=== PATIENT | female | born 1990 | race Caucasian/White ===

== ENCOUNTER 2025-04-17 10:10 | Emergency (ER) | payer MEDICAID, OTHER ==
[~2025-04-17] VITALS: Ht 175.3 cm; Wt 73.3 kg
[~2025-04-17 10:10] MED LIST: ACET650T51; AMOX500C2 PO; NORGTAB33 PO
--- NOTE | 2025-04-17 10:59 | ED.PDOC ---
GI ASSESSMENT HPI Comments 35 y.o female presents to the ED for a chief complaint of generalized weakness associated with nausea, vomiting, diarrhea x 1 week. Patient reports ongoing symptoms, was seen at an urgent care 3 days ago and was advised to go to the ED if she saw any blood in her vomit or diarrhea. Patient states today she woke up and noticed blood specks in her stool, prompting her to come into the ED. Patient also states elevated heart rate recorded by her aura ring at rest with shakiness and weakness. She states that she does feel anxiety as she was recently diagnosed with breast cancer and now is concerned that this could be related. She denies any dysuria, fever, chills, sick contact exposure, hematemesis. Patient was recently diagnosed with breast cancer 2 months ago, had a recent PET scan. She admits to consuming edible marijuana occasionally. Chief Complaint: Nausea/Vomiting Time Seen by MD: 10:37 Primary Care Provider: WANDER Ramsey Notes: Nurses Notes, Medications, Allergies Allergies: Coded Allergies: Acetaminophen (Verified Allergy, 12/25/12) Hydrocodone (Verified Allergy, 12/25/12) Home Meds Active Scripts Ondansetron Odt 4MG Tab (ZOFRAN PO) 4 Mg Tb, 4 MG PO Q8HPRN PRN for 5 Days, #10 TAB ODT TAB-DISSOLVE IN MOUTH, THEN SWALLOW Prov:MADONNA DEE MD 04/17/25 Reported Medications Amoxicillin Trihydrate (Amoxicillin) 500 Mg Cap, 500 MG PO PRN 12/25/12 Acetaminophen W/ Codeine (Cocet) 1 Tab Tab 12/25/12 Norgestimate-Ethinyl Estradiol (Trinessa) Tab, 1 TAB PO DAILY 12/15/12 Information Source: Patient, Relative Mode of Arrival: Ambulatory Timing: Weeks (1) Duration: Since onset Quality: None Vomitus: Hard Stool: Blood Streaked, Loose Severity: Moderate Recent: None Recent Hx of: None Pain Location: None Modifying Factors: Nothing Associated sign and symptoms: Nausea, Vomiting, Diarrhea, Blood in Stool Past Medical History PAST MEDICAL HISTORY: Cancer Surgical History: Denies all surgeries AREA PLANT MANAGER History: Denies all AREA PLANT MANAGER Hx Family History Family History: Reviewed,noncontributory to illness Social History Smoker: Non-Smoker Alcohol: Denies ETOH Use Drugs: Marijuana Lives In: Home Constitutional: reports: weakness; denies: chills, diaphoresis, fatigue, fever, malaise, sweats, others EENTM: denies: blurred vision, double vision, ear bleeding, ear discharge, ear drainage, ear pain, ear ringing, eye pain, eye redness, hearing loss, mouth pain, mouth swelling, nasal discharge, nose bleeding, nose congestion, nose pain, photophobia, tearing, throat pain, throat swelling, voice changes, others Respiratory: denies: cough, hemoptysis, orthopnea, SOB at rest, shortness of breath, SOB with excertion, stridor, wheezing, others Cardiovascular: denies: chest pain, dizzy spells, diaphoresis, Dyspnea on exertion, edema, irregular heart beat, left arm pain, lightheadedness, palpitations, PND, syncope, others Gastrointestinal: reports: diarrhea, nausea, rectal bleeding, vomiting; denies: abdomen distended, abdominal pain, blood streaked bowels, constipated, dysphagia, difficulty swallowing, hematemesis, melena, poor appetite, poor fluid intake, rectal pain, others Genitourinary: denies: abnormal vagina bleeding, burning, dyspareunia, dysuria, flank pain, frequency, hematuria, incontinence, pain, , vagina discharge, urgency, others Neurological: denies: dizziness, fainting, headache, left sided numbness, left sided weakness, numbness, paresthesia, pre-existing deficit, right sided numbness, right sided weakness, seizure, speech problems, tingling, tremors, weakness, others Musculoskeletal: denies: back pain, gout, joint pain, joint swelling, muscle pain, muscle stiffness, neck pain, others Integumetry: denies: bruises, change in color, change in hair/nails, dryness, laceration, lesions, lumps, rash, wounds, others Allergic/Immunocompromised: denies: Difficulty Healing, Frequent Infections, Hives, Itching, others Hematologic/Lymphatic: denies: anemia, blood clots, easy bleeding, easy bruising, swollen glands, others Endocrine: denies: excessive hunger, excessive sweating, excessive thirst, excessive urination, flushing, intolerance to cold, intolerance to heat, unexplained weight gain, unexplained weight loss, others Psychiatric: denies: anxiety, bipolar disorder, depression, hopeless, panic disorder, schizophrenia, sleepless, suicidal, others All Other Systems: Reviewed and Negative Physical Exam General Appearance: No Apparent Distress, Normal HEENT: Normal ENT Inspection, Pharynx Normal, TMs Normal Neck: Full Range of Motion, Non-Tender, Normal, Normal Inspection Respiratory: Chest Non-Tender, Lungs Clear, No Accessory Muscle Use, No Respiratory Distress, Normal Breath Sounds Cardiovascular: No Edema, No JVD, No Murmur, No Gallop, Normal Peripheral Pulses, Regular Rate/Rhythm Breast Exam: Deferred Gastrointestinal: No Organomegaly, Non Tender, No Pulsatile Mass, Normal Bowel Sounds, Soft Genitalia: Deferred Pelvic: Deferred Rectal: Deferred Extremities: No calf tenderness, Normal capillary refill, Normal inspection, Normal range of motion, Non-tender, No pedal edema Musculoskeletal : Apperance: Normal Neurologic: Alert, legal office administrator II-XII nml as Tested, No Motor Deficits, Normal Affect, Normal Mood, No Sensory Deficits Cerebellar Function: Normal Reflexes: Normal Skin: Dry, Normal Color, Warm Lymphatic: No Adenopathy Was a procedure done? Was a procedure done?: No GI differential Dx Differential Diagnosis: Gastritis/PUD, Gastroenteritis, UTI, Dehydration, Electrolyte Imbalance, Food Poisoning, Parasitic, Hypovolemia, Malnutrition, Esophageal Varicies, Stress Ulcer X-Ray, Labs, Meds, VS Vital Signs Date Time Temp Pulse Resp B/P (MAP) Pulse Ox O2 Delivery O2 Flow Rate FiO2 04/17/25 11:25 97.7 117 18 126/78 (94) 97 97.7 04/17/25 11:25 117 18 97 Room Air* 0 21 04/17/25 10:17 98.1 109 17 115/73 (87) 99 98.1 Lab Test 04/17/25 11:31 04/17/25 11:04 Range/Units Urine Color Colorless Yellow Urine Clarity Clear Clear Urine pH 5.5 5.0-9.0 Urine Specific [place] 1.003 1.001-1.035 Urine Protein Negative Negative Urine Ketones 1+ H Negative Urine Blood Negative Negative /uL Urine Nitrite Negative Negative Urine Bilirubin Negative Negative Urine Urobilinogen Normal Negative mg/dL Urine Leukocyte Esterase Negative Negative /uL Urine RBC <1 0 - 4 /hpf Urine Microscopic WBC < 1 0-5 /HPF Urine Squamous Epithelial Cells Few <5 /hpf Urine Bacteria Few H None Seen /hpf Urine Glucose Normal Normal mg/dL Urine Test Negative Negative White Blood Count 4.7 4.4-10.8 10^3/uL Red Blood Count 4.76 4.0-5.20 10^6/uL Hemoglobin 13.8 12.2-16.2 g/dL Hematocrit 41.5 36.0-46.0 % Mean Corpuscular Volume 87.2 80.0-100.0 fL Mean Corpuscular Hemoglobin 29.1 28.0-32.0 pg Mean Corpuscular Hemoglobin Concent 33.4 32.0-36.0 g/dL Red Cell Distribution Width 14.1 11.8-14.3 % Platelet Count 290 140-450 10^3/uL Mean Platelet Volume 8.6 6.9-10.8 fL Neutrophils (%) (Auto) 64.1 37.0-80.0 % Lymphocytes (%) (Auto) 23.5 10.0-50.0 % Monocytes (%) (Auto) 8.9 0.0-12.0 % Eosinophils (%) (Auto) 2.5 0.0-7.0 % Basophils (%) (Auto) 1.0 0.0-2.0 % Neutrophils # (Auto) 3.0 1.6-8.6 10 ^3/uL Lymphocytes # (Auto) 1.1 0.4-5.4 10 ^3/uL Monocytes # (Auto) 0.4 0-1.3 10 ^3/uL Eosinophils # (Auto) 0.1 0-0.8 10 ^3/uL Basophils # (Auto) 0 0-0.2 10 ^3/uL Nucleated Red Blood Cells 0.1 % Sodium Level 137 136-145 mmol/L Potassium Level 4.0 3.5-5.1 mmol/L Chloride Level 104 98-107 mmol/L Carbon Dioxide Level 22 20-31 mmol/L Anion Gap 11 5-15 Blood Urea Nitrogen 7 L 9-23 mg/dL Creatinine 0.72 0.550-1.02 mg/dL Glomerular Filtration Rate Calc 113 >90 mL/min BUN/Creatinine Ratio 9.7 L 10.0-20.0 Serum Glucose 88 74-106 mg/dL Calcium Level 9.0 8.7-10.4 mg/dL Total Bilirubin 0.4 0.2-1.0 mg/dL Direct Bilirubin 0.2 <0.3 mg/dL Aspartate Amino Transferase (AST) 24 <34 U/L Alanine Aminotransferase (ALT) 18 7-40 U/L Alkaline Phosphatase 47 46-116 U/L Total Protein 7.6 5.7-8.2 g/dL Albumin 4.4 3.2-4.8 g/dL Lipase 32 12-53 U/L Current Medications Medications (Trade) Dose Ordered Sig/Elyssa Route Start Time Stop Time Status Last Admin Sodium Chloride 1,000 ml @ 1,000 mls/hr Q1H ONCE IV 04/17/25 11:00 04/17/25 11:59 DC 04/17/25 11:28 Ondansetron HCl (Zofran) 4 mg O ONCE IV 04/17/25 11:00 04/17/25 11:01 DC 04/17/25 11:29 X-Ray, Labs, Meds, VS Comment Patient presents with acute onset of nausea/vomiting/diarrhea without clear etiology from evaluation today and may represent acute viral infection amongst an otherwise broad differential. Today with no signs of dehydration or MARKOS. Symptomatic control achieved in the emergency department with NS/Zofran and patient able to tolerate PO. I suggested performing a rectal exam with the patient to evaluate for her source of possible blood specks in her stool however she refused this and stated she would prefer to follow up with the primary care provider. States it was just one bowel movement and she has no rectal nor abdominal pain. Discussed symptomatic management and supportive care. Patient to follow-up with primary care provider within the next week for reevaluation. Reviewed return precautions including, but not limited to worsening of symptoms, fever > 100.4, PO intolerance, worsening abdominal pain. Patient is in agreement with the plan and all questions answered. Considered cannabis hyperemesis syndrome, gastroparesis, DKA, small bowel obstruction, pancreatitis, atypical ACS/[place], appendicitis, biliary etiology, or diverticulitis, but consider these to be less likely based on history/physical/evaluation as above. Time of 1ST Reevaluation: 10:59 Reevaluation 1ST: Unchanged Time of 2ND Reevaluation: 13:28 Reevaluation 2ND: Resolved (Tolerating p.o., in no distress, feels significantly improved after receiving the results of her blood work and the fluids/Zofran) Patient Education/Counseling: Diagnosis, Treatment, Prognosis, Need For Follow Up Family Education/Counseling: Diagnosis, Treatment, Prognosis, Need For Follow Up SEPSIS Sepsis Screen Date sepsis recognized/suspect: Apr 17, 2025 Time Sepsis recognized/suspect: 1017 Recent Procedure: No On Antibiotic Therapy: Yes (FLAGYL ) Respiratory Rate >20: No Heart Rate >90: No Temp<36 C (96.8 F) or >38.3 C: No SBP <90 or MAP <65 mmHG: No New Acute Mental Status Change: No Is the patient on CPAP, BIPAP,: No Vital Signs Date Time Temp Pulse Resp B/P (MAP) Pulse Ox O2 Delivery O2 Flow Rate FiO2 04/17/25 11:25 97.7 117 18 126/78 (94) 97 97.7 04/17/25 11:25 117 18 97 Room Air* 0 21 04/17/25 10:17 98.1 109 17 115/73 (87) 99 98.1 Laboratory Tests Test 04/17/25 11:04 White Blood Count 4.7 10^3/uL (4.4-10.8) Medications Medications Dose Ordered Sig/Elyssa Route Start Time Stop Time Status Last Admin Dose Admin Ondansetron HCl 4 mg O ONCE IV 04/17/25 11:00 04/17/25 11:01 DC 04/17/25 11:29 Sodium Chloride 1,000 ml @ 1,000 mls/hr Q1H ONCE IV 04/17/25 11:00 04/17/25 11:59 DC 04/17/25 11:28 Departure 1 Departure Time of Disposition: 13:38 Impression: Primary Impression: Gastroenteritis Additional Impression: History of breast cancer Disposition: HOME / SELF CARE / HOMELESS Condition: Stable e-Prescriptions Ondansetron Odt 4MG Tab (ZOFRAN PO) 4 Mg Tb 4 MG PO Q8HPRN PRN for 5 Days, #10 TAB ODT TAB-DISSOLVE IN MOUTH, THEN SWALLOW Prov: MADONNA DEE MD 04/17/25 Discharged With: Relative (Mother) Critical Care Note Critical Care Time?: No Stability Stability form required: No I personally scribed for MADONNA DEE MD ([email or web address]) on 04/17/25 at 10:59. Electronically submitted by Lanette Fox ([facility]). MADONNA DEE MD Apr 17, 2025 10:59
[2025-04-17 11:18] LABS: Basophils # (auto) 0 10 ^3/uL (0-0.2); Eosinophils # (auto) 0.1 10 ^3/uL (0-0.8); Eosinophils % (auto) 2.5 % (0.0-7.0); Hematocrit 41.5 % (36.0-46.0); Hemoglobin 13.8 g/dL (12.2-16.2); Lymphocytes # (auto) 1.1 10 ^3/uL (0.4-5.4); Lymphocytes % (auto) 23.5 % (10.0-50.0); Mean Corpuscular Hemoglobin 29.1 pg (28.0-32.0); Mean Corpuscular Hgb Conc. 33.4 g/dL (32.0-36.0); Mean Corpuscular Volume 87.2 fL (80.0-100.0); Monocytes # (auto) 0.4 10 ^3/uL (0-1.3); Monocytes % (auto) 8.9 % (0.0-12.0); Neutrophils % (auto) 64.1 % (37.0-80.0); Nucleated Red Blood Cells % 0.1 %; Platelet Count (auto) 290 10^3/uL (140-450); Red Blood Cells 4.76 10^6/uL (4.0-5.20); Red Cell Distribution Width 14.1 % (11.8-14.3); White Blood Cell 4.7 10^3/uL (4.4-10.8)
[2025-04-17 11:25] VITALS: PULSE 117; RESP 18; O2SAT 97
[2025-04-17] MEDS: SODIUM CHLORIDE 0.9% 1,000 ML IV ONE (11:28)
[2025-04-17] MEDS: ONDANSETRON HCL 4 MG/2 ML VIAL IV ONE (11:29)
[2025-04-17 11:36] LABS: Alanine Aminotransferase 18 U/L (7-40); Alkaline Phosphatase 47 U/L (46-116); Anion Gap 11 (5-15); BUN/Creatinine Ratio 9.7 (10.0-20.0); Carbon Dioxide 22 mmol/L (20-31); Chloride 104 mmol/L (98-107); Glucose 88 mg/dL (74-106); Lipase 32 U/L (12-53); Sodium 137 mmol/L (136-145); Total Protein 7.6 g/dL (5.7-8.2)
[2025-04-17 11:37] LABS: Albumin 4.4 g/dL (3.2-4.8); Aspartate Aminotransferase 24 U/L (<34); Bilirubin, Total 0.4 mg/dL (0.2-1.0)
[2025-04-17 11:38] LABS: Blood Urea Nitrogen 7 mg/dL (9-23)
[2025-04-17 11:51] LABS: Bilirubin, Direct 0.2 mg/dL (<0.3)
[2025-04-17 13:10] LABS: Urine Bacteria FEW /hpf (None Seen); Urine Blood Negative /uL (Negative); Urine Clarity Clear (Clear); Urine Color Colorless (Yellow); Urine Protein, UAD Negative (Negative); Urine Specific Gravity 1.003 (1.001-1.035); Urine Squamous Epithelial Cell FEW /hpf (<5); Urine Urobilinogen Normal (Negative); Urine WBC < 1 /HPF (0-5); Urine pH 5.5 (5.0-9.0)
[2025-04-17] MEDS ORDERED: ZOFR4T PO (13:30)
[2025-04-17 13:40] VITALS: BP 139/83; PULSE 89; RESP 18; TEMP 98.1; O2SAT 95
== END 2025-04-17 13:43 | disposition home or self-care (01) ==
LOC: ER 10:10
DX: K52.9 Noninfective gastroenteritis and colitis, unspecified (principal); F12.90 Cannabis use, unspecified, uncomplicated; Z85.3 Personal history of malignant neoplasm of breast; Z88.5 Allergy status to narcotic agent; Z79.899 Other long term (current) drug therapy
CPT/HCPCS: 36415; 80048; 80076; 81001; 81025; 83690; 85025; 96361; 96374; 99283; J2405; J7030

== ENCOUNTER 2025-06-12 14:10 | Inpatient (IN) | payer MEDICAID ==
[~2025-06-12] VITALS: Ht 175.3 cm; Wt 70.0 kg
[~2025-06-12 14:10] MED LIST changes: +ZOFR4T PO
--- NOTE | 2025-06-12 16:19 | ED.PDOC ---
SOB-HPI HPI Comments 35 y/o F, with PMHx of breast cancer and the BRCA gene presents to the ED for CC of shortness of breath. Patient states, she has been experiencing symptoms of shortness of breath with associated intermittent substernal non-radiating chest pain x1week. Patient relays, symptoms started shortly after finishing chemotherapy x1week ago. Patient denies weakness or numbness in extremities, cough, nasal congestion, dizziness, headache, nausea, or vomiting. No other symptoms or modifying factors are present at this time. Chief Complaint: Shortness of Breath Time Seen by MD: 16:00 Primary Care Provider: WANDER Ramsey notes: Nurses Notes, Medications, Allergies Information Source: Patient Mode of Arrival: Wheelchair Severity: Moderate Timing: Weeks Duration: Since onset Context: At Rest PE Risk Factors: None History of: None Prehospital treatment: None Modifying Factors: Nothing Associated Signs and Symptoms: None Radiation: No Radiation Location: Substernal Past Medical History PAST MEDICAL HISTORY: Cancer Surgical History: Denies all surgeries FINISHING FRAME RUNNER History: Denies all FINISHING FRAME RUNNER Hx Family History Family History: Reviewed,noncontributory to illness Social History Smoker: Non-Smoker Alcohol: Denies ETOH Use Drugs: Marijuana Lives In: Home Constitutional: denies: chills, diaphoresis, fatigue, fever, malaise, sweats, weakness, others EENTM: denies: blurred vision, double vision, ear bleeding, ear discharge, ear drainage, ear pain, ear ringing, eye pain, eye redness, hearing loss, mouth pain, mouth swelling, nasal discharge, nose bleeding, nose congestion, nose pain, photophobia, tearing, throat pain, throat swelling, voice changes, others Respiratory: reports: shortness of breath; denies: cough, hemoptysis, ort hopnea, SOB at rest, SOB with excertion, stridor, wheezing, others Cardiovascular: reports: chest pain; denies: dizzy spells, diaphoresis, Dyspnea on exertion, edema, irregular heart beat, left arm pain, lightheadedness, palpitations, PND, syncope, others Gastrointestinal: denies: abdomen distended, abdominal pain, blood streaked bowels, constipated, diarrhea, dysphagia, difficulty swallowing, hematemesis, melena, nausea, poor appetite, poor fluid intake, rectal bleeding, rectal pain, vomiting, others Genitourinary: denies: abnormal vagina bleeding, burning, dyspareunia, dysuria, flank pain, frequency, hematuria, incontinence, pain, , vagina discharge, urgency, others Neurological: denies: dizziness, fainting, headache, left sided numbness, left sided weakness, numbness, paresthesia, pre-existing deficit, right sided numbness, right sided weakness, seizure, speech problems, tingling, tremors, w eakness, others Musculoskeletal: denies: back pain, gout, joint pain, joint swelling, muscle pain, muscle stiffness, neck pain, others Integumetry: denies: bruises, change in color, change in hair/nails, dryness, laceration, lesions, lumps, rash, wounds, others Allergic/Immunocompromised: denies: Difficulty Healing, Frequent Infections, Hives, Itching, others Hematologic/Lymphatic: denies: anemia, blood clots, easy bleeding, easy bruising, swollen glands, others Endocrine: denies: excessive hunger, excessive sweating, excessive thirst, excessive urination, flushing, intolerance to cold, intolerance to heat, unexplained weight gain, unexplained weight loss, others Psychiatric: denies: anxiety, bipolar disorder, depression, hopeless, panic disorder, schizophrenia, sleepless, suicidal, others All Other Systems: Reviewed and Negative Physical Exam General Appearance: Moderate Distress HEENT: Normal ENT Inspection, Pharynx Normal, TMs Normal Neck: Full Range of Motion, Non-Tender, Normal, Normal Inspection Respiratory: Chest Non-Tender, Lungs Clear, No Accessory Muscle Use, No Respiratory Distress, Normal Breath Sounds Cardiovascular: Tachycardia Breast Exam: Deferred Gastrointestinal: No Organomegaly, Non Tender, No Pulsatile Mass, Normal Bowel Sounds, Soft Genitalia: Deferred Pelvic: Deferred Rectal: Deferred Extremities: No calf tenderness, Normal capillary refill, Normal inspection, Normal range of motion, Non-tender, No pedal edema Musculoskeletal : Apperance: Normal Neurologic: Alert, seafood processor II-XII nml as Tested, No Motor Deficits, Normal Affect, Normal Mood, No Sensory Deficits Cerebellar Function: NOT DONE Reflexes: NOT DONE Skin: Normal Color Peripheral Pulses: 3+ Radial (R), 3+ Radial (L) Lymphatic: No Adenopathy Was a procedure done? Was a procedure done?: No Differential Dx Differential Diagnosis: Anxiety, Asthma, Bronchitis, CHF, COPD, Pulmonary Embolism, Sinusitis, Pharyngitis, URI X-Ray, Labs, Meds, VS Vital Signs Date Time Temp Pulse Resp B/P (MAP) Pulse Ox O2 Delivery O2 Flow Rate FiO2 06/12/25 14:24 85 06/12/25 14:12 97.4 133 18 131/94 100 97.4 Patient alert. She is anxious. Vitals stable. Answering questions. Saturation pristine on room air. No leg swelling. Heart rate normalized. Heart rate initially increased because of stress. She is on chemotherapy. Was given Ativan. Explained to the patient. Continue monitoring. [place] [id number] Ph: [phone] DIAGNOSTIC IMAGING Diagnostic Imaging Report : [id number] Signed PATIENT: ELLEN PARKERCCT: [id number] UNIT: [id number] : 1990 LOC: ER ROOM / BED: / AGE / SEX: 35 / F ADM STATUS: REG ER SERVICE 1452 ORDERING PHYSICIAN: JOELLE SEO MD PROCEDURE(s): CXRP - CHEST PORTABLE REASON: sob ORDER NUMBER(s): [id number], ACCESSION NUMBER(s): [id number] CHEST RADIOGRAPH Indication: sob Technique: Single frontal view of the chest was obtained Comparison: None FINDINGS: Lines and Tubes: Port-A-Cath in place in the left internal jugular vein with the tip in the superior vena cava above the right atrium. There is no left pneumothorax. Lungs: No focal consolidation. Pleura: No effusion. No pneumothorax. Cardiomediastinal contours: Unremarkable Bones: No acute osseous abnormality. IMPRESSION: 1. Left-sided Port-A-Cath in place with the tip in the superior vena cava above the right atrium. 2. No prior studies for comparison. 3. No pneumothorax. HS:Y ATED BY: NALINI PELAYO Jr., DO DICTATED DATE/TIME: 06/12/251643 SIGNED BY: NALINI PELAYO Jr., DO SIGNED DATE/TIME: 06/12/251643 CC: Time of 1ST Reevaluation: 16:30 Reevaluation 1ST: Unchanged Patient Education/Counseling: Diagnosis, Treatment Family Education/Counseling: No Family Present SEPSIS Sepsis Screen Date sepsis recognized/suspect: Jun 12, 2025 Time Sepsis recognized/suspect: 1413 Recent Procedure: No On Antibiotic Therapy: No Respiratory Rate >20: No Heart Rate >90: Yes Temp<36 C (96.8 F) or >38.3 C: No SBP <90 or MAP <65 mmHG: No New Acute Mental Status Change: No Is the patient on CPAP, BIPAP,: No Physician Orders Electrocardigram (06/12/25 14:17) Chest Portable (06/12/25 14:52) Troponin-I Hs (06/12/25 16:35) Complete Blood Count (06/12/25 16:35) Urinalysis (06/12/25 16:35) Basic Metabolic Panel (06/12/25 16:35) Sodium Chloride 0.9% (06/12/25 16:45) Sodium Chloride 0.9% (06/12/25 16:45) Vital Signs Date Time Temp Pulse Resp B/P (MAP) Pulse Ox O2 Delivery O2 Flow Rate FiO2 06/12/25 14:24 85 06/12/25 14:12 97.4 133 18 131/94 100 97.4 Departure 1 Departure Time of Disposition: 16:38 Impression: Primary Impression: Chest pain of unknown etiology Disposition: 09 ADMITTED INPATIENT Admit to: Med Surg Condition: Guarded Critical Care Note Critical Care Time?: No Stability Stability form required: No Heart Score Heart Score: Heart Score Response (Comments) Value History N/A 0 EKG N/A 0 Age N/A 0 Risk Factors N/A 0 Troponin N/A 0 Total 0 I personally scribed for JOELLE SEO MD ([email or web address]) on 06/12/25 at 16:19. Electronically submitted by Jessica Nickerson ([email or web address]). I personally scribed for JOELLE SEO MD ([email or web address]) on 06/12/25 at 16:49. Electronically submitted by Jessica Nickerson [email or web address]). JOELLE SEO MD Jun 12, 2025 16:19
[2025-06-12] MEDS: SODIUM CHLORIDE 0.9% 1,000 ML IV ONE ×2 (16:45)
--- NOTE | 2025-06-12 16:47 | DVH ---
CHEST RADIOGRAPH Indication: sob Technique: Single frontal view of the chest was obtained Comparison: None FINDINGS: Lines and Tubes: Port-A-Cath in place in the left internal jugular vein with the tip in the superior vena cava above the right atrium. There is no left pneumothorax. Lungs: No focal consolidation. Pleura: No effusion. No pneumothorax. Cardiomediastinal contours: Unremarkable Bones: No acute osseous abnormality. IMPRESSION: 1. Left-sided Port-A-Cath in place with the tip in the superior vena cava above the right atrium. 2. No prior studies for comparison. 3. No pneumothorax. HS:Y
[2025-06-12] MEDS: LORazepam 2MG/ML-1ML VIAL IV ONE (17:23)
[2025-06-12 18:02] LABS: Hematocrit 35.1 % (36.0-46.0); Hemoglobin 11.8 g/dL (12.2-16.2); Mean Corpuscular Hemoglobin 29.2 pg (28.0-32.0); Mean Corpuscular Volume 87.1 fL (80.0-100.0); Nucleated Red Blood Cells % 0.1 %
[2025-06-12 18:07] LABS: Potassium 3.8 mmol/L (3.5-5.1); Sodium 140 mmol/L (136-145)
[2025-06-12 18:08] LABS: Anion Gap 8 (5-15); Carbon Dioxide 25 mmol/L (20-31)
[2025-06-12 18:13] LABS: Glucose 82 mg/dL (74-106)
[2025-06-12 18:14] LABS: BUN/Creatinine Ratio 19.7 (10.0-20.0); Blood Urea Nitrogen 12 mg/dL (9-23)
[2025-06-12 18:18] LABS: Calcium 8.7 mg/dL (8.7-10.4); Chloride 107 mmol/L (98-107)
[2025-06-12 18:19] VITALS: PULSE 100; RESP 17; O2SAT 95
[2025-06-12 18:24] LABS: Urine Protein, UAD Negative (Negative)
[2025-06-12 21:18] VITALS: PULSE 100; RESP 11; O2SAT 100
[2025-06-12] MEDS ORDERED: ACETAMINOPHEN 325 MG TAB PO PRN (21:45)
[2025-06-12] MEDS ORDERED: HYDROcodone-ACET 5/325MG TAB PO PRN (21:45)
--- NOTE | 2025-06-12 22:00 | DVHHPRES ---
History of Present Illness Resident Creating Document: GERARDO MESSER History of Present Illness This is a 35-year-old female with past medical history of right-sided breast cancer. Patient states that breast answer was diagnosed on February of 2025 and was referred to [facility] for chemo therapy. She got initially three rounds of chemotherapy on May 11, 2025 but had to stop chemotherapy due to decrease in WBC, afterwards patient developed palpitations and was stopped on further chemotherapy and was referred to [employer] but had no appointment yet. Patient denies any additional past medical history of relevance. Patient presented to the ED due to worsening of chest pain and associated shortness of breaths. The patient reports that a catheter port was placed on May [id number] for chemotherapy initiation. Patient states that since then she has been having chest pain but worsened one week ago with minimal exertion and is associated w ith moderate to severe shortness of breaths. The patient states that the pain got worse one week ago while she was walking and described the pain in the substernal region radiating up to the neck associated with palpitations and shortness of breaths. Upon admission, patient reported minimal improvement of the chest pain and shortness of breaths but he is currently on room air. I nitial chest x-ray was grossly unremarkable without evidence of clear consolidations. We ordered D-dimer which came back slightly elevated so we will order a CT angio of the chest to rule out PE. Patient will be admitted for further assessment and management. Past medical history: Right-sided breast cancer diagnosed on February of 2025 and was referred to [facility] for chemo therapy. Home medications: Denies Surgical history: Denies Social history: Reports occasional marijuana, denies alcohol or any additional drug intake. Past Surgical History: None Family History: None Smoke: No ALCOHOL: none Drugs: Marijuana Lives: with Family Domestic Violence: Neg Review of Systems Constitutional: No: Fever, Chills, Sweats, Weakness, Malaise, Other Eyes: No: Pain, Vision change, Conjunctivae inflammation, Eyelid inflammation, Other, Redness ENT: No: Ear pain, Ear discharge, Nose pain, Nose discharge, Nose congestion, Mouth pain, Mouth swelling, Throat pain, Throat swelling, Other Respiratory: Shortness of breath, SOB with excertion, Pleuritic Pain; No: Cough, Dry, Wheezing, Hemoptysis, Sputum, Wheezing, Other Cardiovascular: Chest Pain, Palpitations; No: Orthopnea, Paroxysmal Noc. Dys pnea, Edema, Lt Headedness, Other Gastrointestinal: No: Nausea, Vomiting, Abdominal Pain, Diarrhea, Constipation, Melena, Hematochezia, Other Genitourinary: No Dysuria, No Frequency, No Incontinence, No Hematuria, No Retention, No Other Musculoskeletal: No: other, neck pain, shoulder pain, arm pain, back pain, hand pain, leg pain, foot pain Skin: No: Rash, Lesions, Jaundice, Bruising, Other Neurological: No: Weakness, Numbness, Incoordination, Change in speech, Confusion, Seizures, Other Allergies: Coded Allergies: Acetaminophen (Verified Allergy, 12/25/12) Hydrocodone (Verified Allergy, 12/25/12) Medications Current Medications Medications Dose Ordered Sig/Elyssa Route Start Time Stop Time Status Last Admin Dose Admin Acetaminophen 650 mg Q6HP PRN PO 06/12/25 21:45 UNV Acetaminophen/ Hydrocodone Bitart 1 tab Q4HP PRN PO 06/12/25 21:45 UNV Exam Vital Signs Vital Signs Date Time Temp Pulse Resp B/P (MAP) Pulse Ox O2 Delivery O2 Flow Rate FiO2 06/12/25 21:18 100 11 100 Room Air* 0 21 06/12/25 20:00 98.0 104/69 (81) 98.0 General Appearance: Alert, Oriented X3, Cooperative, mild distress HEENT: Atraumatic, PERRLA, EOMI, Mucous membr. moist/pink Respiratory: Clear to auscultation, Normal air movement Cardiovascular: Regular rate, Normal S1, Normal S2, No murmurs Abdominal: Normal bowel sounds, Soft, No tenderness, No hepatospenomegaly Extremities: No clubbing, No cyanosis, No edema, Normal pulses, No tenderness/swelling Skin: No rashes, No breakdown, No significant lesion Neuro: Normal gait, Normal speech, Strength at 5/5 X4 ext, Normal tone, Sens ation intact, Cranial nerves 3-12 NL, Reflexes 2+ Psych/Mental Status: Mental status NL, Mood NL Labs/Xrays Labs Test 06/12/25 17:45 06/12/25 17:40 06/12/25 17:17 Range/Units White Blood Count 6.2 4.4-10.8 10^3/uL Red Blood Count 4.02 4.0-5.20 10^6/uL Hemoglobin 11.8 L 12.2-16.2 g/dL Hematocrit 35.1 L 36.0-46.0 % Mean Corpuscular Volume 87.1 80.0-100.0 fL Mean Corpuscular Hemoglobin 29.2 28.0-32.0 pg Mean Corpuscular Hemoglobin Concent 33.6 32.0-36.0 g/dL Red Cell Distribution Width 15.2 H 11.8-14.3 % Platelet Count 270 140-450 10^3/uL Mean Platelet Volume 7.6 6.9-10.8 fL Neutrophils (%) (Auto) 70.9 37.0-80.0 % Lymphocytes (%) (Auto) 23.2 10.0-50.0 % Monocytes (%) (Auto) 4.8 0.0-12.0 % Eosinophils (%) (Auto) 0.3 0.0-7.0 % Basophils (%) (Auto) 0.8 0.0-2.0 % Neutrophils # (Auto) 4.4 1.6-8.6 10 ^3/uL Lymphocytes # (Auto) 1.4 0.4-5.4 10 ^3/uL Monocytes # (Auto) 0.3 0-1.3 10 ^3/uL Eosinophils # (Auto) 0 0-0.8 10 ^3/uL Basophils # (Auto) 0 0-0.2 10 ^3/uL Nucleated Red Blood Cells 0.1 % D-Dimer, Quantitative 0.54 H 0.0-0.49 mg/L FEU Sodium Level 140 136-145 mmol/L Potassium Level 3.8 3.5-5.1 mmol/L Chloride Level 107 98-107 mmol/L Carbon Dioxide Level 25 20-31 mmol/L Anion Gap 8 5-15 Blood Urea Nitrogen 12 9-23 mg/dL Creatinine 0.61 0.550-1.02 mg/dL Glomerular Filtration Rate Calc 121 >90 mL/min BUN/Creatinine Ratio 19.7 10.0-20.0 Serum Glucose 82 74-106 mg/dL Calcium Level 8.7 8.7-10.4 mg/dL Troponin I High Sensitivity < 3 L </=34 ng/L Urine Color Light-yellow Yellow Urine Clarity Clear Clear Urine pH 7.5 5.0-9.0 Urine Specific [place] 1.019 1.001-1.035 Urine Protein Negative Negative Urine Ketones Negative Negative Urine Blood Negative Negative /uL Urine Nitrite Negative Negative Urine Bilirubin Negative Negative Urine Urobilinogen Normal Negative mg/dL Urine Leukocyte Esterase Negative Negative /uL Urine RBC 3 0 - 4 /hpf Urine Microscopic WBC 1 0-5 /HPF Urine Squamous Epithelial Cells Few <5 /hpf Urine Bacteria None seen None Seen /hpf Urine Mucus Few None Seen Urine Glucose Normal Normal mg/dL POC Glucose 83 70-106 mg/dl SEPSIS Sepsis Screen Date sepsis recognized/suspect: Jun 12, 2025 Time Sepsis recognized/suspect: 1821 Recent Procedure: No On Antibiotic Therapy: No Respiratory Rate >20: No Heart Rate >90: No Temp<36 C (96.8 F) or >38.3 C: No SBP <90 or MAP <65 mmHG: No New Acute Mental Status Change: No Is the patient on CPAP, BIPAP,: No Physician Orders Electrocardigram (06/12/25 14:17) Chest Portable (06/12/25 14:52) Sodium Chloride 0.9% (06/12/25 16:45) Urinalysis (06/12/25 20:22) Test, Urine (06/12/25 20:22) Ct Angio Chest Contrast (06/12/25 21:27) Admit (06/12/25 21:31) Code Status (06/12/25 21:31) Vital Signs .PER UNIT PROTOCOL (06/12/25 21:31) Review Orders With Adm.Md (06/12/25 21:31) Encourage Activity As Tolerate (06/12/25 21:31) Regular Diet (06/13/25 Breakfast) Acetaminophen Tablet (Tylenol Tablet) (06/12/25 21:45) Notify Md Of Changes From Base (06/12/25 21:31) Advance Directive (06/12/25 21:31) Echo 2d Mode Cardiac Dop (06/12/25 21:31) Complete Blood Count (06/13/25 04:00) Lipid Panel (06/12/25 21:31) Patient Condition (06/12/25 21:31) Allergies (06/12/25 21:31) Hydrocodone-Acet 5/325mg Tab (Beverly 5/32 (06/12/25 21:45) Drug Screen (06/12/25 21:31) Hemoglobin A1c (06/12/25 21:31) Comprehensive Metabolic Panel (06/13/25 04:00) Covid19 Antigen Kaur (06/12/25 ) Rapid Influenza A&B (06/12/25 21:35) Vital Signs Date Time Temp Pulse Resp B/P (MAP) Pulse Ox O2 Delivery O2 Flow Rate FiO2 06/12/25 21:18 100 11 100 Room Air* 0 21 06/12/25 20:43 90 06/12/25 20:00 98.0 95 12 104/69 (81) 100 98.0 06/12/25 18:22 99 Room Air* 0 21 06/12/25 18:19 100 17 95 Room Air* 0 21 06/12/25 18:00 83 17 106/76 (86) 93 06/12/25 17:39 98.4 86 17 122/84 (97) 93 98.4 06/12/25 14:24 85 06/12/25 14:12 97.4 133 18 131/94 100 97.4 Laboratory Tests Test 06/12/25 17:45 White Blood Count 6.2 10^3/uL (4.4-10.8) Medications Medications Dose Ordered Sig/Elyssa Route Start Time Stop Time Status Last Admin Dose Admin Sodium Chloride 1,000 ml @ 150 mls/hr Q6H40M ONCE IV 06/12/25 16:45 06/12/25 23:24 06/12/25 16:45 150 MLS/HR Sodium Chloride 1,000 ml @ 1,000 mls/hr Q1H ONCE IV 06/12/25 16:45 06/12/25 17:44 DC 06/12/25 16:45 1,000 MLS/HR Assessment/Plan Assessment/Plan Assessment/plan Acute chest pain, R/O ACS Acute hypoxic respiratory failure, R/O pulmonary embolism Ruled out bacterial pneumonia History of right-sided breast cancer Plan -patient reports chest pain associated with shortness of breaths and palpitations -D-dimer was slightly elevated -wells score for PE was 2.5 points -ordered CT angio of the chest, pending result -EKG showed sinus rhythm with no ST segment elevation or depression -patient received three rounds of chemotherapy May 11, 2025 -not on chemotherapy at this time -catheter port placed May 05, 2025 -IV fluids -Pain medication -O2 through NC as needed to keep sats above 94% Goals of care discussed with patient and mother at bedside, FULL CODE Plan discussed with Dr. Paniagua Plan discussed with: Patient My Orders Orders - GERARDO MESSER Procedure Category Date Status Time Ct Angio Chest CT 06/12/25 Logged Contrast 21:27 Admit ADMIT 06/12/25 Transmitted 21:31 Code Status CODE 06/12/25 Transmitted 21:31 Vital Signs [facility] 06/12/25 In Process 21:31 Review Orders With CARLOS 06/12/25 In Process Adm.Md 21:31 Encourage Activity As CARLOS 06/12/25 In Process Tolerate 21:31 Regular Diet DIET 06/13/25 Transmitted Breakfast Acetaminophen Tablet PHA 06/12/25 Logged (Tylenol Tablet) 21:45 Notify Md Of Changes [facility] 06/12/25 In Process From Base 21:31 Advance Directive [facility] 06/12/25 In Process 21:31 Echo 2d Mode Cardiac US 06/12/25 Logged DOP 21:31 Complete Blood Count LAB 06/13/25 Verified 04:00 Lipid Panel LAB 06/12/25 Logged 21:31 Patient Condition ORDERS 06/12/25 Transmitted 21:31 Allergies CARLOS 06/12/25 In Process 21:31 Hydrocodone-Acet PHA 06/12/25 Logged 5/325mg Tab (Beverly 21:45 Drug Screen LAB 06/12/25 Logged 21:31 Hemoglobin A1c LAB 06/12/25 Logged 21:31 Comprehensive LAB 06/13/25 Verified Metabolic Panel 04:00 Covid19 Antigen Kaur LAB 06/12/25 Logged Rapid Influenza A&B LAB 06/12/25 Logged 21:35 Date of Service: Jun 12, 2025 Billing Provider: NICOLE PANIAGUA MD Common Visit Codes: 78077-INBVRYV INP/OBS CARE (HIGH) Secondary Visit Codes: 73702-JRYARXRQ CARE PLAN 30 MINUTES GERARDO MESSER Jun 12, 2025 22:00
[2025-06-12] MEDS: IOHEXOL 350 MG/ML 100ML IJ ONE (22:12)
--- NOTE | 2025-06-12 22:19 | DVH ---
STUDY: CT CT ANGIO CHEST CONTRAST Indication: RULE OUT PE TECHNIQUE: Axial images were obtained through the chest with reformat images post intravenous contr ast. Reconstruction processing of 3D angiographic images of the vessels was obtained. 80 mL of omnipaque 35mg/dl was administered. DLP: 435 FINDINGS: PULMONARY ARTERIES: No evidence of pulmonary embolism. LUNGS AND PLEURA: No focal consolidations. No definite pulmonary edema. No mass or nodule. No pleural effusion. No pneu mothorax. MEDIASTINUM: No lymphadenopathy or mass. The heart shows no acute findings. The aorta shows no acute findings. The pulmonary trunk, and branches of the vessels in the mediastinu m are within normal limits. SUPRACLAVICULAR AND AXILLARY: No abnormalities seen in these regions. No mass or significant lymphadenopathy. UPPER ABDOMEN: The visualized upper abdomen is unremarkable. BONES AND SOFT TISSUES: The ribs are unremarkable. The visualized spine shows no significant acute findings. No focal bony mass lesions noted. The subcutaneous soft tissues are unremarkable. IMPRESSION: 1. No acute pulmonary emboli. 2. No focal consolidations.
[2025-06-12 22:48] LABS: Triglycerides 71 mg/dL (< 150)
[2025-06-12 22:50] LABS: Cholesterol 160 mg/dL (< 200)
[2025-06-12 22:51] LABS: HDL Cholesterol 36 mg/dL (40-59)
[2025-06-12 23:00] VITALS: BP 119/66; PULSE 85; RESP 14; TEMP 98; O2SAT 98
[2025-06-13 02:08] VITALS: BP 117/75; PULSE 84; RESP 17; O2SAT 97
[2025-06-13 02:14] LABS: COVID19 ANTIGEN SOFIA FIA NEGATIVE (NEGATIVE)
[2025-06-13 04:31] VITALS: BP 97/61; PULSE 61; RESP 16; O2SAT 99
[2025-06-13 06:11] LABS: Hematocrit 30.6 % (36.0-46.0); Hemoglobin 10.5 g/dL (12.2-16.2); Mean Corpuscular Hemoglobin 30.0 pg (28.0-32.0); Mean Corpuscular Volume 87.2 fL (80.0-100.0); Nucleated Red Blood Cells % 0.0 %
[2025-06-13 06:35] LABS: Alkaline Phosphatase 48 U/L (46-116); Anion Gap 11 (5-15); Carbon Dioxide 23 mmol/L (20-31); Glucose 78 mg/dL (74-106); Sodium 141 mmol/L (136-145); Total Protein 5.7 g/dL (5.7-8.2)
[2025-06-13 06:36] LABS: Albumin 3.6 g/dL (3.2-4.8); Bilirubin, Total 0.5 mg/dL (0.2-1.0)
[2025-06-13 06:37] LABS: Alanine Aminotransferase < 9 U/L (7-40); Calcium 8.4 mg/dL (8.7-10.4); Chloride 107 mmol/L (98-107); Potassium 3.3 mmol/L (3.5-5.1)
[2025-06-13 06:40] VITALS: BP 103/67; PULSE 66; RESP 15; O2SAT 97
[2025-06-13 06:47] LABS: BUN/Creatinine Ratio 10.6 (10.0-20.0); Blood Urea Nitrogen 5 mg/dL (9-23)
[2025-06-13 08:48] VITALS: PULSE 85; RESP 21; O2SAT 98
--- NOTE | 2025-06-13 11:56 | DVHSR ---
APPROVED REPORT EXAM: Two-dimensional and M-mode echocardiogram with Doppler and color Doppler. Blood Pressure: 100/60 mmHg INDICATION R/O structural heart abnormalities RISK FACTORS Height: 69, Weight: 154 DIMENSIONS LVDd4.7 (3.8-5.7cm)LA (2D)2.9 (1.9-4.0cm)Aortic Root3.3 (2.0-3.7cm) LVDs3.2 (2.5-4.0cm)LA (MM) (1.9-4.0cm)Aortic Cusp Exc1.8 (1.5-2.0cm) EF (%) 61.0 (55-70%)Rt. Atrium (1.9-4.0cm)Asc. Aorta cm IVSd0.7 (0.7-1.1cm)RV (D) (1.8-2.4cm) PWd0.9 (0.7-1.1cm) Mitral Valve MitralMitral Stenosis E/A ratio0.02D MVAcm2 Aortic Valve Aortic ValveAortic Stenosis V11.15m/Souleymane Mean GR.4mmHg V21.39m/Souleymane Peak GR.8mmHg LVOT Diameter1.8 (1.8-2.4cm)Doppler AVA2.10cm2 Pulmonic Valve V20.80m/s Tricuspid Valve TR Velocity2.50m/s [id number] Other Information Technically limited study due to body habitus and high heart rate. Conclusion lvef 65% normal rv functin normal atria no severe valve abnormalities noted
--- NOTE | 2025-06-13 15:06 | DVHDSRES ---
Discharge Summary Date of Admission Resident Creating Document: PIEDAD MEREDTIH RESIDENT Jun 12, 2025 at 21:31 Date of Discharge: Jun 13, 2025 Admitting Diagnosis chest pain and shortness of breaths Labs/Diagnostic Data: Laboratory Results Test 06/13/25 05:54 06/13/25 01:15 06/12/25 17:45 06/12/25 17:40 White Blood Count 4.0 10^3/uL (4.4-10.8) Red Blood Count 3.50 10^6/uL (4.0-5.20) Hemoglobin 10.5 g/dL (12.2-16.2) Hematocrit 30.6 % (36.0-46.0) Mean Corpuscular Volume 87.2 fL (80.0-100.0) Mean Corpuscular Hemoglobin 30.0 pg (28.0-32.0) Mean Corpuscular Hemoglobin Concent 34.4 g/dL (32.0-36.0) Red Cell Distribution Width 15.1 % (11.8-14.3) Platelet Count 215 10^3/uL (140-450) Mean Platelet Volume 7.3 fL (6.9-10.8) Neutrophils (%) (Auto) 53.1 % (37.0-80.0) Lymphocytes (%) (Auto) 39.6 % (10.0-50.0) Monocytes (%) (Auto) 5.6 % (0.0-12.0) Eosinophils (%) (Auto) 0.6 % (0.0-7.0) Basophils (%) (Auto) 1.1 % (0.0-2.0) Neutrophils # (Auto) 2.1 10 ^3/uL (1.6-8.6) Lymphocytes # (Auto) 1.6 10 ^3/uL (0.4-5.4) Monocytes # (Auto) 0.2 10 ^3/uL (0-1.3) Eosinophils # (Auto) 0 10 ^3/uL (0-0.8) Basophils # (Auto) 0 10 ^3/uL (0-0.2) Nucleated Red Blood Cells 0.0 % Sodium Level 141 mmol/L (136-145) Potassium Level 3.3 mmol/L (3.5-5.1) Chloride Level 107 mmol/L (98-107) Carbon Dioxide Level 23 mmol/L (20-31) Anion Gap 11 (5-15) Blood Urea Nitrogen 5 mg/dL (9-23) Creatinine 0.47 mg/dL (0.550-1.02) Glomerular Filtration Rate Calc 129 mL/min (>90) BUN/Creatinine Ratio 10.6 (10.0-20.0) Serum Glucose 78 mg/dL (74-106) Calcium Level 8.4 mg/dL (8.7-10.4) Total Bilirubin 0.5 mg/dL (0.2-1.0) Aspartate Amino Transferase (AST) 11 U/L (13-40) Alanine Aminotransferase (ALT) < 9 U/L (7-40) Alkaline Phosphatase 48 U/L (46-116) Total Protein 5.7 g/dL (5.7-8.2) Albumin 3.6 g/dL (3.2-4.8) Influenza Type A Antigen Negative (Negative) Influenza Type B Antigen Negative (Negative) SARS-CoV-2 Antigen (Rapid) Negative (NEGATIVE) D-Dimer, Quantitative 0.54 mg/L FEU (0.0-0.49) Hemoglobin A1c 5.5 % A1C (<5.7) Troponin I High Sensitivity < 3 ng/L (</=34) Triglycerides Level 71 mg/dL (< 150) Cholesterol Level 160 mg/dL (< 200) LDL Cholesterol 124 mg/dL (< 100) HDL Cholesterol 36 mg/dL (40-59) Urine Color Light-yellow (Yellow) Urine Clarity Clear (Clear) Urine pH 7.5 (5.0-9.0) Urine Specific [place] 1.019 (1.001-1.035) Urine Protein Negative (Negative) Urine Ketones Negative (Negative) Urine Blood Negative /uL (Negative) Urine Nitrite Negative (Negative) Urine Bilirubin Negative (Negative) Urine Urobilinogen Normal mg/dL (Negative) Urine Leukocyte Esterase Negative /uL (Negative) Urine RBC 3 /hpf (0 - 4) Urine Microscopic WBC 1 /HPF (0-5) Urine Squamous Epithelial Cells Few /hpf (<5) Urine Bacteria None seen /hpf (None Seen) Urine Mucus Few (None Seen) Urine Glucose Normal mg/dL (Normal) Test 06/12/25 17:17 POC Glucose 83 mg/dl (70-106) Other Laboratory Tests 06/13/25 05:54 Brief Hx & Hospital Course: This is a 35-year-old female with a known history of right-sided breast cancer diagnosed in February 2025. She was referred to [facility] for chemotherapy and received three initial rounds starting May 11, 2025. Chemotherapy was discontinued due to leukopenia and subsequent development of palpitations. She was referred to cardiology but has not yet been evaluated. A Port-A-Cath was placed on May 05, 2025, for chemotherapy administration. Since placement, the patient has experienced persistent substernal chest pain, which acutely worsened one week prior to admission during minimal exertion, accompanied by moderate to severe shortness of breath and palpitations. The patient was admitted for further evaluation and management of chest pain and dyspnea. She received IV fluids, pain control, and supplemental oxygen as needed to maintain oxygen saturation above 94%. She presented to the ED with these symptoms. On admission, she was on room air with minimal improvement in symptoms. Initial chest X-ray was unremarkable. D- dimer was slightly elevated, and Wells score was 2.5, prompting a CT angiogram of the chest to rule out pulmonary embolism. CT angio revealed no evidence of PE, consolidation, or other acute findings. Portable chest X-ray confirmed appropriate Port-A-Cath placement without pneumothorax. Echocardiogram showed normal left ventricular ejection fraction (65%), normal right ventricular function, normal atria and no significant valvular abnormalities. The study was technically limited due to body habitus and elevated heart rate. Her vitals have remained stable for discharge home. Detailed discussion held with patient at bedside were all questions were answered and concerns were addressed. Physical exam General Appearance: Alert, Oriented X3, Cooperative, mild distress, chest wall with implanted catheter port HEENT: Atraumatic, PERRLA, EOMI, Mucous membr. moist/pink Respiratory: Clear to auscultation, Normal air movement Cardiovascular: Regular rate, Normal S1, Normal S2, No murmurs Abdominal: Normal bowel sounds, Soft, No tenderness, No hepatospenomegaly Extremities: No clubbing, No cyanosis, No edema, Normal pulses, No tenderness/swelling Skin: No rashes, No breakdown, No significant lesion Neuro: Normal gait, Normal speech, Strength at 5/5 X4 ext, Normal tone, Sensation intact, Cranial nerves 3-12 NL, Reflexes 2+ Psych/Mental Status: Mental status NL, Mood NL Operations or Procedures PROCEDURE(s): CTACH - CT ANGIO CHEST CONTRAST REASON: RULE OUT PE ORDER NUMBER(s): [id number], ACCESSION NUMBER(s): [id number] STUDY: CT CT ANGIO CHEST CONTRAST Indication: RULE OUT PE TECHNIQUE: Axial images were obtained through the chest with reformat images post intravenous contrast. Reconstruction processing of 3D angiographic images of the vessels was obtained. 80 mL of omnipaque 35mg/dl was administered. DLP: 435 FINDINGS: PULMONARY ARTERIES: No evidence of pulmonary embolism. LUNGS AND PLEURA: No focal consolidations. No definite pulmonary edema. No mass or nodule. No pleural effusion. No pneumothorax. MEDIASTINUM: No lymphadenopathy or mass. The heart shows no acute findings. The aorta shows no acute findings. The pulmonary trunk, and branches of the vessels in the mediastinum are within normal limits. SUPRACLAVICULAR AND AXILLARY: No abnormalities seen in these regions. No mass or significant lymphadenopathy. UPPER ABDOMEN: The visualized upper abdomen is unremarkable. BONES AND SOFT TISSUES: The ribs are unremarkable. The visualized spine shows no significant acute findings. No focal bony mass lesions noted. The subcutaneous soft tissues are unremarkable. IMPRESSION: 1. No acute pulmonary emboli. 2. No focal consolidations. - PROCEDURE(s): CXRP - CHEST PORTABLE REASON: sob ORDER NUMBER(s): [id number], ACCESSION NUMBER(s): [id number] CHEST RADIOGRAPH Indication: sob Technique: Single frontal view of the chest was obtained Comparison: None FINDINGS: Lines and Tubes: Port-A-Cath in place in the left internal jugular vein with the tip in the superior vena cava above the right atrium. There is no left pneumothorax. Lungs: No focal consolidation. Pleura: No effusion. No pneumothorax. Cardiomediastinal contours: Unremarkable Bones: No acute osseous abnormality. IMPRESSION: 1. Left-sided Port-A-Cath in place with the tip in the superior vena cava above the right atrium. 2. No prior studies for comparison. 3. No pneumothorax. HS:Y PROCEDURE(s): ECIDC - ECHO 2D MODE CARDIAC DOP REASON: R/O structural heart abn ORDER NUMBER(s): [id number], ACCESSION NUMBER(s): [id number] APPROVED REPORT EXAM: Two-dimensional and M-mode echocardiogram with Doppler and color Doppler. Blood Pressure: 100/60 mmHg INDICATION R/O structural heart abnormalities RISK FACTORS Height: 69, Weight: 154 DIMENSIONS LVDd 4.7 (3.8-5.7cm) LA (2D) 2.9 (1.9-4.0cm) Aortic Root 3.3 (2.0- 3.7cm) LVDs 3.2 (2.5-4.0cm) LA (MM) (1.9-4.0cm) Aortic Cusp Exc 1.8 (1.5- 2.0cm) EF (%) 61.0 (55-70%) Rt. Atrium (1.9-4.0cm) Asc. Aorta cm IVSd 0.7 (0.7-1.1cm) RV (D) (1.8-2.4cm) PWd 0.9 (0.7-1.1cm) Mitral Valve Mitral Mitral Stenosis E/A ratio 0.0 2D MVA cm2 Aortic Valve Aortic Valve Aortic Stenosis V1 1.15m/s AO Mean GR. 4mmHg V2 1.39m/s AO Peak GR. 8mmHg LVOT Diameter 1.8 (1.8-2.4cm) Doppler FARHAD 2.10cm2 Pulmonic Valve V2 0.80m/s Tricuspid Valve TR Velocity 2.50m/s RVSP 32mmHg Other Information Technically limited study due to body habitus and high heart rate. Conclusion lvef 65% normal rv functin normal atria no severe valve abnormalities noted SIGNED BY: EDWARD SAWYER MD SIGNED DATE/TIME: 06/13/25 9021 Condition at Discharge: Stable (RN) Final Diagnosis/Problems List Acute chest pain, ruled out ACS Acute hypoxic respiratory failure, R/O pulmonary embolism Ruled out bacterial pneumonia History of right-sided breast cancer Discharge Disposition: Home Discharge Instruct/Medications Diet: Regular Activity: No Restrictions, As Tolerated Follow Up/Referral: Follow up with PCP within 1-2 weels. Medications: continue home medication as per EMR Scheduled Amoxicillin Trihydrate (Amoxicillin), 500 MG PO PRN, (Reported) Norgestimate-Ethinyl Estradiol (Trinessa), 1 TAB PO DAILY, (Reported) Scheduled PRN Ondansetron Odt 4MG Tab (Zofran Po), 4 MG PO Q8HPRN PRN Miscellaneous Medications Acetaminophen W/ Codeine (Cocet), (Reported) Discharge Statement: "Patient was advised to return to the ER or call 911 if any headaches, dizziness, shortness of breath, chest pain, abdominal pain, bleeding, fevers, or worsening of medical condition. Patient was counseled about treatment plan, medications, possible side effects, patientverbalized understanding. All questions were answered to the best of my ability. This discharge took greater then 30 minutes in planning, reviewing documentation, counseling the patient, and discussing with other team members." ASSESSMENT ASSESSMENT Assessment Acute chest pain, R/O ACS Acute hypoxic respiratory failure, R/O pulmonary embolism Ruled out bacterial pneumonia History of right-sided breast cancer PIEDAD MEREDITH RESIDENT Jun 13, 2025 15:06
[2025-06-13 17:49] VITALS: BP 115/80; PULSE 99; RESP 16; TEMP 98.2; O2SAT 98
--- NOTE | 2025-06-15 12:17 | ECG ---
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
== END 2025-06-13 18:00 | disposition home or self-care (01) | DRG 133 ==
LOC: ER 14:10 → OVERFLOW 21:31
PROVIDERS: ADMIT Internal Medicine Geriatric Medicine; ATTEND Internal Medicine Geriatric Medicine
DX: J96.01 Acute respiratory failure with hypoxia (principal); R07.89 Other chest pain; Z79.899 Other long term (current) drug therapy; Z85.3 Personal history of malignant neoplasm of breast
CPT/HCPCS: 36415; 71045; 71275; 80048; 80053; 80061; 81001; 82962; 83036; 84484; 85025; 85379; 87426; 87804; 93005; 93306; 96360; G0378

== ENCOUNTER 2025-07-09 21:19 | Emergency (ER) | payer MEDICAID ==
[~2025-07-09] VITALS: Ht 175.3 cm; Wt 73.0 kg
[2025-07-09 21:20] VITALS: BP 110/75; PULSE 114; RESP 18; TEMP 97.7; O2SAT 98
== END 2025-07-09 23:39 | disposition left against medical advice (07) ==
LOC: ER 21:23
DX: R31.9 Hematuria, unspecified (principal); Z53.21 Procedure and treatment not carried out due to patient leaving prior to being seen by health care provider